=== PATIENT | male | born 1990 | race Caucasian/White ===

== ENCOUNTER → 2016-04-26 | Outpatient (CLI) | payer OTHER ==
--- NOTE | 2016-04-26 08:59 | REP ---
The right internal auditory canal, cochlea, vestibule and semicircular canals are normal in appearance. The ossicles are normal in configuration and position. The scutum and tegmen are intact. There is perforation of the right tympanic membrane. The right middle ear cavity and mastoid air cells are clear. The patient is status post left mastoidectomy. Soft tissue density is present at the mastoidectomy site. This most likely represents granulation tissue. The left inner ear, cochlea, vestibule and semicircular canals are normal in appearance. The ossicles are normal in configuration and position. The scutum and tegmen are intact. The left middle ear cavity is clear. There is partial opacification of residual left mastoid air cells. Minimal mucosal thickening is present in the left ethmoid sinus. The remaining visualized sinuses are clear. The nasopharynx is normal in appearance. IMPRESSION: 1. There is perforation of the right tympanic membrane. 2. The patient is status post partial left mastoidectomy. Signed by Jeremy Lobo MD 04/26/2016 09:00 A
== END ==
LOC: M RAD 07:06
PROVIDERS: ATTEND Otolaryngology
DX: H72.01 Central perforation of tympanic membrane, right ear (principal); Z86.69 Personal history of other diseases of the nervous system and sense organs

== ENCOUNTER 2016-11-03 22:32 | Emergency (ER) | payer MEDICAID, OTHER ==
[~2016-11-03] VITALS: Ht 170.2 cm; Wt 59.1 kg
[2016-11-03] MEDS ORDERED: MUCI600T31 PO (22:44)
[2016-11-03] MEDS ORDERED: AZITHROMYCIN 250 MG TAB PO ONE (23:30)
[2016-11-03] MEDS ORDERED: ALBUTEROL 90 MCG/ACT 8GM HFA INHALER INH ONE (23:30)
[2016-11-03] MEDS ORDERED: AZIT-12 PO (23:51)
[2016-11-03] MEDS ORDERED: [UNRECOGNIZED DRUG - CODE] PO (23:51)
[2016-11-04 00:07] VITALS: BP 120/67
--- NOTE | 2016-11-04 11:16 | REP ---
Clinical: Cough . Comparison: None . Technique: PA and lateral. Findings: The mediastinum and cardiac silhouette are normal. The lung carranza are clear and without acute consolidation, effusion, or pneumothorax. The skeletal structures are intact and normal. Impression: 1. No acute cardiopulmonary process. Signed by Mansoor Mendoza MD 11/04/2016 08:30 A
== END 2016-11-04 00:19 | disposition home or self-care (01) ==
LOC: M ED 22:32
DX: J20.9 Acute bronchitis, unspecified (principal)

== ENCOUNTER 2017-04-22 19:41 | Emergency (ER) | payer OTHER, MEDICAID ==
[2017-04-22 21:08] LABS: KETONE, URINE AUTO RFX NEGATIVE (NEGATIVE); LEUKOCYTE ESTERASE UR AUTO RFX NEGATIVE (NEGATIVE); MUCUS, URINE RFX SMALL (NEGATIVE); NITRITE, URINE AUTO RFX NEGATIVE (NEGATIVE); RBC, URINE AUTO RFX 7 /HPF (0-3); SPECIFIC GRAVITY UR AUTO RFX 1.028 (1.002-1.035); SQUAM EPITHELIAL CELL UR AURFX 0 /HPF (0-6); WBC, URINE AUTO RFX 1 /HPF (0-3)
[2017-04-22 22:55] LABS: CHLAMYDIA DNA AMPLIFICATION NEGATIVE (NEGATIVE); GC DNA AMPLIFICATION NEGATIVE (NEGATIVE)
== END 2017-04-23 01:21 | disposition home or self-care (01) ==
LOC: M ED 19:41
DX: N41.0 Acute prostatitis (principal); N43.3 Hydrocele, unspecified; Z20.2 Contact with and (suspected) exposure to infections with a predominantly sexual mode of transmission; K58.9 Irritable bowel syndrome, unspecified; F41.9 Anxiety disorder, unspecified; F32.9 Major depressive disorder, single episode, unspecified; F42.9 Obsessive-compulsive disorder, unspecified; F17.210 Nicotine dependence, cigarettes, uncomplicated
CPT/HCPCS: 76870

== ENCOUNTER 2017-05-01 19:27 | Emergency (ER) | payer OTHER, MEDICAID ==
[2017-05-01 21:25] LABS: AMORPHOUS SEDIMENT RFX LARGE (NEGATIVE); KETONE, URINE AUTO RFX NEGATIVE (NEGATIVE); LEUKOCYTE ESTERASE UR AUTO RFX NEGATIVE (NEGATIVE); NITRITE, URINE AUTO RFX NEGATIVE (NEGATIVE); RBC, URINE AUTO RFX 2 /HPF (0-3); SPECIFIC GRAVITY UR AUTO RFX 1.017 (1.002-1.035); SQUAM EPITHELIAL CELL UR AURFX 0 /HPF (0-6); WBC, URINE AUTO RFX 0 /HPF (0-3)
[2017-05-01 22:35] LABS: BASO # 0.1 10^3/uL (0.0-0.2); BASO % 0.7 % (0.0-1.0); EOS # 0.3 10^3/uL (0.0-0.50); EOS % 3.6 % (0.0-3.0); HEMATOCRIT 42.5 % (42.0-52.0); HEMOGLOBIN 14.2 g/dl (14.0-18.0); IMMATURE GRANULOCYTE % 0.1 % (0-3.0); LYMPH # 2.3 10^3/uL (1.5-6.5); LYMPH % 30.7 % (24.0-44.0); MEAN CORPUSCULAR HGB CONC 33.4 g/dl (32.0-36.5); MEAN CORPUSCULAR VOLUME 89.9 fl (80.0-96.0); MONO # 0.6 10^3/uL (0.0-0.8); MONO % 8.1 % (0.0-5.0); NEUTROPHILS # 4.3 10^3/uL (1.8-7.7); NEUTROPHILS % 56.8 % (36.0-66.0); PLATELET COUNT, AUTOMATED 275 10^3/uL (150-450); RED BLOOD COUNT 4.73 10^6/uL (4.30-6.10); RED CELL DISTRIBUTION WIDTH 12.1 % (11.5-14.5); WHITE BLOOD COUNT 7.6 10^3/uL (4.0-10.0)
[2017-05-01 22:59] LABS: ALBUMIN 4.5 GM/DL (3.2-5.2); ALBUMIN/GLOBULIN RATIO 1.41 (1.00-1.93); ALKALINE PHOSPHATASE 74 U/L (45-117); ALT/SGPT 17 U/L (12-78); ANION GAP 6 MEQ/L (8-16); AST/SGOT 12 U/L (7-37); BILIRUBIN,DIRECT < 0.1 MG/DL (0.0-0.2); BILIRUBIN,TOTAL 0.4 MG/DL (0.2-1.0); BLOOD UREA NITROGEN 11 MG/DL (7-18); CALCIUM LEVEL 8.7 MG/DL (8.5-10.1); CARBON DIOXIDE LEVEL 29 MEQ/L (21-32); CHLORIDE LEVEL 107 MEQ/L (98-107); CREATININE FOR GFR 0.75 MG/DL (0.70-1.30); GLOMERULAR FILTRATION RATE > 60.0 (>60); GLUCOSE, FASTING 94 MG/DL (70-100); POTASSIUM SERUM 3.9 MEQ/L (3.5-5.1); SODIUM LEVEL 142 MEQ/L (136-145); TOTAL PROTEIN 7.7 GM/DL (6.4-8.2)
[2017-05-01] MEDS ORDERED: LIDOCAINE 1% MDV 20ML VIAL As Ordered (23:42)
[2017-05-01] MEDS: cefTRIAXone SOD 250 MG VIAL (J0696) IM (23:53)
[2017-05-01] MEDS: DOXYCYCLINE HYCLATE 100 MG TAB PO (23:53)
== END 2017-05-02 00:14 | disposition home or self-care (01) ==
LOC: M ED 05-02 00:14
DX: N50.812 Left testicular pain (principal); F41.9 Anxiety disorder, unspecified; M77.9 Enthesopathy, unspecified; F17.200 Nicotine dependence, unspecified, uncomplicated
CPT/HCPCS: J0696

== ENCOUNTER → 2017-05-01 | Outpatient (REF) | payer OTHER, MEDICAID | LOC: M SFHCLERA 11:05 | DX: N41.9 Inflammatory disease of prostate, unspecified (principal) | CPT/HCPCS: 87086 ==

== ENCOUNTER → 2017-05-02 | Outpatient (REF) | payer OTHER, MEDICAID ==
[2017-05-03 10:43] LABS: HIV 1&2 SCREEN CENTAUR NEGATIVE (NEGATIVE)
== END ==
LOC: M SFHCLERA 16:53
DX: Z11.3 Encounter for screening for infections with a predominantly sexual mode of transmission (principal)

== ENCOUNTER → 2017-09-26 | Outpatient (REF) | payer OTHER, MEDICAID | LOC: M SFHCLERA 11:31 | DX: D22.5 Melanocytic nevi of trunk (principal); Z80.8 Family history of malignant neoplasm of other organs or systems | CPT/HCPCS: 88305 ==

== ENCOUNTER → 2017-11-16 | Outpatient (REF) | payer OTHER ==
[2017-11-20 08:20] LABS: D001-IgE D pteronyssinus <0.10 kU/L (Class 0); E001-IgE Cat Epith/Dander < 0.10 kU/L (Class 0); E005-IgE Dog Dander < 0.10 kU/L (Class 0); G002-IgE Bermuda Grass < 0.10 kU/L (Class 0); G008-IgE Kentucky Bluegrass < 0.10 kU/L (Class 0); M001-IgE Penicillium chrysogen < 0.10 kU/L (Class 0); M002 IgE Cladosporium herbaru < 0.10 kU/L (Class 0); M003 IgE Aspergillus fumigatu < 0.10 kU/L (Class 0); M006-IgE Alternaria alternata < 0.10 kU/L (Class 0); T001-IgE Maple/Box Elder < 0.10 kU/L (Class 0); T003-IgE Common Silver Birch < 0.10 kU/L (Class 0); T006-IgE Cedar, Mountain < 0.10 kU/L (Class 0); T007-IgE Oak, White < 0.10 kU/L (Class 0); T008-IgE Elm, American < 0.10 kU/L (Class 0); T015-IgE Ash, White < 0.10 kU/L (Class 0); T041-IgE Hickory, White < 0.10 kU/L (Class 0); T070-IgE White Mulberry < 0.10 kU/L (Class 0); W001-IgE Ragweed, Short < 0.10 kU/L (Class 0); W009-IgE Plantain, English < 0.10 kU/L (Class 0); W014-IgE Pigweed, Rough < 0.10 kU/L (Class 0); W018-IgE Sheep Sorrel < 0.10 kU/L (Class 0)
== END ==
LOC: M SFHCLERA 11:03
DX: J30.9 Allergic rhinitis, unspecified (principal)

== ENCOUNTER 2018-01-19 13:38 | Emergency (ER) | payer OTHER | END 2018-01-19 14:59 | disposition home or self-care (01) | LOC: M ED 14:59 | DX: H61.22 Impacted cerumen, left ear (principal); Z86.69 Personal history of other diseases of the nervous system and sense organs; Z88.2 Allergy status to sulfonamides | CPT/HCPCS: 99282 ==

== ENCOUNTER 2018-02-07 17:20 | Emergency (ER) | payer OTHER ==
[2018-02-07] MEDS: ACETAMINOPHEN 325 MG TAB PO (19:39)
[2018-02-07 19:43] LABS: BASO % 0.6 % (0.0-1.0); EOS # 0.1 10^3/uL (0.0-0.50); HEMATOCRIT 40.2 % (42.0-52.0); HEMOGLOBIN 13.4 g/dl (13.5-17.5); IMMATURE GRANULOCYTE % 0.1 % (0-3.0); LYMPH # 2.3 10^3/uL (1.5-6.5); LYMPH % 32.8 % (24.0-44.0); MEAN CORPUSCULAR HEMOGLOBIN 30.1 pg (27.0-33.0); MEAN CORPUSCULAR HGB CONC 33.3 g/dl (32.0-36.5); MEAN CORPUSCULAR VOLUME 90.3 fl (80.0-96.0); MONO # 0.6 10^3/uL (0.0-0.8); MONO % 8.4 % (0.0-5.0); NEUTROPHILS % 56.1 % (36.0-66.0); PLATELET COUNT, AUTOMATED 255 10^3/uL (150-450); RED BLOOD COUNT 4.45 10^6/uL (4.30-6.10); RED CELL DISTRIBUTION WIDTH 12.7 % (11.5-14.5); WHITE BLOOD COUNT 7.1 10^3/uL (4.0-10.0)
[2018-02-07 20:11] LABS: ANION GAP 6 MEQ/L (8-16); BLOOD UREA NITROGEN 10 MG/DL (7-18); CALCIUM LEVEL 8.8 MG/DL (8.5-10.1); CARBON DIOXIDE LEVEL 27 MEQ/L (21-32); CHLORIDE LEVEL 107 MEQ/L (98-107); CK-MB VALUE MASS < 1.0 NG/ML (<3.6); CPK CREATINE PHOSPHOKINASE 73 U/L (39-308); CREATININE FOR GFR 0.75 MG/DL (0.70-1.30); GLOMERULAR FILTRATION RATE > 60.0 (>60); GLUCOSE, FASTING 91 MG/DL (70-100); MB/CK RELATIVE INDEX 1.37 (< OR =4); POTASSIUM SERUM 3.9 MEQ/L (3.5-5.1); SODIUM LEVEL 140 MEQ/L (136-145); TROPONIN I < 0.02 NG/ML (< 0.10)
== END 2018-02-07 21:20 | disposition home or self-care (01) ==
LOC: M ED 17:20
DX: R07.89 Other chest pain (principal); Z88.1 Allergy status to other antibiotic agents; Z88.2 Allergy status to sulfonamides
CPT/HCPCS: 93005

== ENCOUNTER → 2018-02-07 | Outpatient (REF) | payer OTHER | LOC: M LAB REF 13:53 | DX: H92.12 Otorrhea, left ear (principal) ==

== ENCOUNTER → 2018-02-14 | Outpatient (REF) ==
[~2018-02-14] MED LIST: AZIT-12 PO; CIPR-249 PO; DEBR6.5S4 OTIC; DOXY-350 PO; ESCI10TA2; MUCI600T31 PO; TYLE325C PO; [UNRECOGNIZED DRUG - CODE] PO
--- NOTE | 2018-02-14 19:08 | REP ---
Clinical: Pain and disability. Technique: AP, lateral, bilateral oblique views of the right hand. Findings: No acute fracture dislocation. No overt arthritic degenerative changes noted. Surrounding soft tissues are unremarkable. Impression: Nonspecific right hand radiographs. Electronically Signed by Mansoor Mendoza MD 02/14/2018 07:00 P
== END ==
LOC: M SMT 10:59
PROVIDERS: ATTEND Internal Medicine
DX: Z00.00 Encounter for general adult medical examination without abnormal findings (principal)

== ENCOUNTER → 2018-05-16 | Outpatient (REF) | payer OTHER | LOC: M LAB REF 10:45 | PROVIDERS: ATTEND Physician Assistant Medical | DX: H95.192 Other disorders following mastoidectomy, left ear (principal) ==

== ENCOUNTER 2018-06-08 06:52 | Day surgery (SDC) | payer OTHER ==
[~2018-06-08] VITALS: Ht 170.2 cm; Wt 56.2 kg
[~2018-06-08 06:52] MED LIST changes: +NS 1,000 ML IV ONE
[2018-06-08] MEDS ORDERED: PROPOFOL 200 MG/20 ML VIAL As Ordered ONE ×2 (07:41→08:25)
[2018-06-08] MEDS ORDERED: LIDOCAINE 2% INJ 100 MG/5 ML SDV (FOR ANES.) As Ordered ONE ×2 (07:41→08:25)
--- NOTE | 2018-06-08 08:37 | ROOR ---
Patient Name: Héctor Barreto Procedure Date: 06/08/2018 8:01 AM Date of : 1990 Age: 28 Room: [facility] Gender: Male Note Status: Finalized Procedure: Colonoscopy Indications: Hematochezia Providers: Zhao Westfall MD Referring MD: Pacheco HARMON MD Requesting Provider: Medicines: Monitored Anesthesia Care Complications: No immediate complications. Procedure: Pre-Anesthesia Assessment: - Prior to the procedure, a History and Physical was performed, and patient medications and allergies were reviewed. The patient is competent. The risks and benefits of the procedure and the sedation options and risks were discussed with the patient. All questions were answered and informed consent was obtained. Patient identification and proposed procedure were verified by the physician, the nurse and the anesthesiologist in the procedure room. Mental Status Examination: alert and oriented. Airway Examination: normal oropharyngeal airway and neck mobility. Respiratory Examination: clear to auscultation. CV Examination: normal. Prophylactic Antibiotics: The patient does not require prophylactic antibiotics. Prior Anticoagulants: The patient has taken no previous anticoagulant or antiplatelet agents. ASA Grade Assessment: II - A patient with mild systemic disease. After reviewing the risks and benefits, the patient was deemed in satisfactory condition to undergo the procedure. The anesthesia plan was to use monitored anesthesia care (MAC). Immediately prior to administration of medications, the patient was re-assessed for adequacy to receive sedatives. The heart rate, respiratory rate, oxygen saturations, blood pressure, adequacy of pulmonary ventilation, and response to care were monitored throughout the procedure. The physical status of the patient was re-assessed after the procedure. The Colonoscope was introduced through the anus and advanced to the terminal ileum, with identification of the appendiceal orifice and IC valve. The colonoscopy was performed without difficulty. The patient tolerated the procedure well. The quality of the bowel preparation was good. The terminal ileum, ileocecal valve, appendiceal orifice, and rectum were photographed. Scope insertion time was 2 minutes. Scope withdrawal time was 8 minutes. The total duration of the procedure was 10 minutes. Findings: The perianal and digital rectal examinations were normal. The terminal ileum appeared normal. Non-bleeding external and internal hemorrhoids were found during retroflexion. The hemorrhoids were medium-sized. No other significant abnormalities were identified in a careful examination of the remainder of the colon. Impression: - The examined portion of the ileum was normal. - Non-bleeding external and internal hemorrhoids. - No specimens collected. Recommendation: - Patient has a contact number available for emergencies. The signs and symptoms of potential delayed complications were discussed with the patient. Return to normal activities tomorrow. Written discharge instructions were provided to the patient. - High fiber diet. - Continue present medications. - Preparation H ointment: Apply externally once to BID for 5 days. - Repeat colonoscopy at age 50 for screening purposes. - Return to primary care physician. Zhao Westfall MD Zhao Westfall MD 06/08/2018 8:37:21 AM Electronically signed by Zhao Westfall MD Number of Addenda: 0 Note Initiated On: 06/08/2018 8:01 AM Estimated Blood Loss: Estimated blood loss: none.
[2018-06-08 08:51] VITALS: BP 96/69
== END 2018-06-08 08:53 | disposition home or self-care (01) ==
LOC: M OPP 06:52
PROVIDERS: ATTEND Internal Medicine Gastroenterology
DX: K64.8 Other hemorrhoids (principal); K92.1 Melena